=== PATIENT | female | born 1960 | race Hispanic/Latino ===

== ENCOUNTER 2020-01-21 12:59 | Outpatient (CLI) | payer OTHER ==
--- NOTE | 2020-01-21 14:57 | XRay Report ---
LEFT KNEE 2 VIEWS INDICATION: LEFT KNEE PAIN. COMPARISON: None. IMPRESSION: Mild osteopenia. A large osteochondral defect measuring up to 2.6 x 1.6 cm is identifie d in the medial femoral condyle. This may represent an unstable fragment. No evidence for acute fract ure. Mild osteoarthritic changes are noted. Small joint effusion. Consider further evaluation with MR I left knee without contrast. RIGHT ANKLE 2 VIEWS INDICATION: Right ankle pain. COMPARISON: None. IMPRESSION: Mild osteopenia. There is been previous internal fixation of of the distal fibula with m etal plate and screws. The distal tibia is intact. The talar dome is abnormal and appears fragmented . 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 Moderate degenerative change s are noted at the tibiotalar joint as well. No acute fractures appreciated. Tiny plantar spur. Consi charlie further evaluation with MRI right ankle without contrast. Signer Name: Hudson Overton Jr, MD Signed: 01/21/2020 2:52 PM Workstation Name: [id number]
== END 2020-01-21 13:00 | disposition home or self-care (01) ==
LOC: XRAY 12:59
PROVIDERS: ATTEND Internal Medicine
DX: M17.12 Unilateral primary osteoarthritis, left knee (principal); M19.071 Primary osteoarthritis, right ankle and foot; M77.31 Calcaneal spur, right foot; M25.462 Effusion, left knee